=== PATIENT | female | born 1965 | race Caucasian/White ===

== ENCOUNTER 2018-05-23 02:42 | Emergency (ER) | payer BC ==
--- NOTE | 2018-05-23 03:34 | EDM.PDOC ---
ED HPI GENERAL MEDICAL PROBLEM - General Chief Complaint: General Stated Complaint: Right side chest pain; SOB Time Seen by Provider: 05/23/18 03:17 Source of Information: Reports: Patient, Family, RN, RN Notes Reviewed History Limitations: Reports: No Limitations - History of Present Illness INITIAL COMMENTS - FREE TEXT/NARRATIVE: Patient presents to the ED at [facility] for the evaluation of right side chest pain and SOB. This is not a new problem. The patient states the chest pain and SOB originally started about 6 weeks ago. Patient states this time it woke her up from sleeping. She felt clammy, sweaty, nauseated, and a hard time catching her breath. Patient stated having a multitude of other symptoms once the chest pain resolved. Patient states she is seeing Dr. Berman through [place]. All of her blood testing has been negative. Holter monitor was normal. EKG's have all been normal. Ultrasound have been normal. Patient is concerned as this chest pain with SOB has been occurring for "a long time" and does not seem to be getting better. Patient states all of her symptoms resolved prior to presentation. She is currently "feeling much better." The patient has had extensive workup to date for her current symptoms and no etiology for her chest pain/SOB has been found. Duration: Chronic Right Chest Pain Score (Numeric/FACES): 7 - Related Data Allergies Allergy/AdvReac Type Severity Reaction Status Date / Time sulfamethoxazole Allergy Hives Verified 05/23/18 02:43 [From Bactrim] trimethoprim [From Bactrim] Allergy Hives Verified 05/23/18 02:43 Past Medical History HEENT History: Reports: Allergic Rhinitis Cardiovascular History: Reports: None Respiratory History: Reports: Asthma Gastrointestinal History: Reports: GERD Genitourinary History: Reports: None Other Genitourinary History: perimenopausal vasomotor symptoms Musculoskeletal History: Reports: None Neurological History: Reports: Migraines Other Neuro History: Occational migraines Psychiatric History: Reports: Anxiety Other Psychiatric History: difficulty sleeping Hematologic History: Reports: Anemia Immunologic History: Reports: None Dermatologic History: Reports: None - Past Surgical History Head Surgeries/Procedures: Reports: None HEENT Surgical History: Reports: Tonsillectomy Other HEENT Surgeries/Procedures: teeth extraction GI Surgical History: Reports: Appendectomy Other GI Surgeries/Procedures: lap diag Female Surgical History: Reports: Section, D&C Neurological Surgical History: Reports: None Musculoskeletal Surgical History: Reports: None Social & Family History - Tobacco Use Smoking Status *Q: Never Smoker ED ROS GENERAL - Review of Systems Review Of Systems: See Below Constitutional: Reports: Weakness, Diaphoresis. Denies: Fever, Chills Respiratory: Reports: Shortness of Breath. Denies: Cough, Sputum Cardiovascular: Reports: Chest Pain, Lightheadedness. Denies: Palpitations GI/Abdominal: Reports: Nausea. Denies: Abdominal Pain, Diarrhea, Vomiting Skin: Reports: No Symptoms Neurological: Reports: Dizziness ED EXAM, GENERAL - Physical Exam Exam: See Below Exam Limited By: No Limitations General Appearance: Alert, No Apparent Distress Respiratory/Chest: No Respiratory Distress, Lungs Clear, Normal Breath Sounds Cardiovascular: Normal Peripheral Pulses, Regular Rate, Rhythm, No Edema Peripheral Pulses: 2+: Radial (L), Radial (R) GI/Abdominal: Normal Bowel Sounds, Soft, Non-Tender Neurological: Alert, Oriented Skin Exam: Warm, Dry, Intact, Normal Color EKG INTERPRETATION EKG Date: 05/23/18 Time: 02:57 Rhythm: NSR Rate (Beats/Min): 57 [place]: Normal P-Wave: Present QRS: Normal ST-T: Normal QT: Normal NH/PQ Interval: 0.17 Comparison: NA - No Prior EKG EKG Interpretation Comments: Sinus Bradycardia Borderline ECG Course - Vital Signs Last Recorded V/S: Last Vital Signs Temp 35.1 C L 05/23/18 02:44 Pulse 62 05/23/18 02:44 Resp 18 05/23/18 02:44 BP 103/64 05/23/18 02:44 Pulse Ox 100 05/23/18 02:44 - Orders/Labs/Meds Orders: Active Orders 24 hr Category Date Time Status EKG 12 Lead [EKG Documentation Completion] [RC] STAT Care 05/23/18 03:17 Active Labs: Laboratory Tests 05/23/18 05/23/18 05/23/18 Range/Units 03:33 03:33 03:39 WBC 6.9 (4.0-10.0) x10^3/uL RBC 4.60 (4.00-5.50) x10^6/uL Hgb 13.3 (12.0-16.0) g/dL Hct 40.6 (33.0-47.0) % MCV 88.3 (78.0-93.0) fL MCH 28.9 (26.0-32.0) pg MCHC 32.8 (32.0-36.0) g/dL RDW Coeff of Nilda 13.3 (10.0-15.0) % Plt Count 314 (130-400) x10^3/uL Neut % (Auto) 81.8 H (50.0-80.0) % Lymph % (Auto) 13.3 L (25.0-50.0) % Bartholomew % (Auto) 4.2 (2.0-11.0) % Eos % (Auto) 0.6 (0.0-4.0) % Baso % (Auto) 0.1 L (0.2-1.2) % Sodium 145 (136-145) mmol/L Potassium 3.7 (3.5-5.1) mmol/L Chloride 106 (98-107) mmol/L Carbon Dioxide 28 (21-32) mmol/L Anion Gap 14.7 (10-20) mmol/L BUN 24 H (7-18) mg/dL Creatinine 0.9 (0.55-1.02) mg/dL Est Cr Clr Drug Dosing TNP Estimated GFR (MDRD) > 60 Glucose 101 (74-106) mg/dL Calcium 9.5 (8.5-10.1) mg/dL Creatine Kinase 41 (26-192) U/L POC Troponin I 0.00 (0.00-0.08) ng/mL Departure - Departure Time of Disposition: 04:02 Disposition: Home, Self-Care 01 Condition: Good Clinical Impression: Atypical chest pain - Discharge Information *PRESCRIPTION DRUG MONITORING PROGRAM REVIEWED*: Not Applicable *COPY OF PRESCRIPTION DRUG MONITORING REPORT IN PATIENT CHIKA: Not Applicable Instructions: Nonspecific Chest Pain Referrals: Fernando Berman MD [Ordering Only Provider] - Forms: ED Department Discharge Additional Instructions: 1. Stay well hydrated and rest 2. All testing today was normal, which is great news 3. See your PCP as symptoms warrant - Problem List Review Problem List Initiated/Reviewed/Updated: Yes - My Orders Last 24 Hours: My Active Orders 05/23/18 03:17 EKG 12 Lead [EKG Documentation Completion] [RC] STAT - Assessment/Plan Last 24 Hours: My Active Orders 05/23/18 03:17 EKG 12 Lead [EKG Documentation Completion] [RC] STAT Assessment:: Atypical chest pain Plan: Labs and EKG discussed at length with patient. No acute emergency found. Recommend continued close follow up with PCP.
[2018-05-23 03:59] LABS: CHLORIDE,CL 106 mmol/L (98-107); SODIUM,NA 145 mmol/L (136-145)
[2018-05-23 04:01] LABS: ANION GAP 14.7 mmol/L (10-20)
== END 2018-05-23 04:08 | disposition home or self-care (01) ==
LOC: VM.ED 02:42
DX: R07.89 Other chest pain (principal); Z88.2 Allergy status to sulfonamides; Z88.1 Allergy status to other antibiotic agents
CPT/HCPCS: 36415; 80048; 82550; 84484; 85025; 93005; 99285-25

== ENCOUNTER 2022-09-07 20:39 | Emergency (ER) | payer BC ==
[2022-09-07] MEDS ORDERED: Sodium Chloride 0.9% 1,000 ML IV ONE (20:49)
[2022-09-07 21:03] LABS: BASOPHILS PERCENT AUTO 0.4 % (0.2-1.2); EOSINOPHILS ABSOLUTE AUTO 0.1 x10^3/uL (0.0-0.5); EOSINOPHILS PERCENT AUTO 1.8 % (0.0-4.0); HEMATOCRIT 38.6 % (33.0-47.0); LYMPHOCYTES ABSOLUTE AUTO 2.8 x10^3/uL (1.0-4.8); MEAN CORPUSCULAR HEMOGLOBIN 29.3 pg (26.0-32.0); MEAN CORPUSCULAR HGB CONC 33.7 g/dL (32.0-36.0); MEAN CORPUSCULAR VOLUME 87.1 fL (78.0-93.0); MONOCYTES ABSOLUTE AUTO 0.6 x10^3/uL (0.0-0.8); MONOCYTES PERCENT AUTO 7.7 % (2.0-11.0); NEUTROPHILS ABSOLUTE AUTO 3.9 x10^3/uL (1.8-7.7); NEUTROPHILS PERCENT AUTO 52.1 % (50.0-80.0); PLATELET COUNT,PLT 339 x10^3/uL (130-400); RED BLOOD CELL COUNT 4.43 x10^6/uL (4.00-5.50); WHITE BLOOD CELL COUNT,WBC 7.4 x10^3/uL (4.0-10.0)
[2022-09-07 21:23] LABS: A/G RATIO 1.19; ALANINE AMINOTRANSFERASE,ALT 26 U/L (14-59); ALBUMIN 3.8 g/dL (3.4-5.0); ALKALINE PHOSPHATASE 56 U/L (46-116); ANION GAP 13.5 mmol/L (5-15); ASPARTATE AMNIOTRANSFERASE,AST 13 U/L (15-37); BILIRUBIN TOTAL 0.4 mg/dL (0.2-1.0); BLOOD UREA NITROGEN,BUN 20 mg/dL (7-18); C-REACTIVE PROTEIN 0.29 mg/dL (<=0.30); CALCIUM 9.1 mg/dL (8.5-10.1); CARBON DIOXIDE,CO2 29 mmol/L (21-32); CHLORIDE,CL 103 mmol/L (98-107); CREATINE KINASE,CK 41 U/L (26-192); ESTIMATED GFR 67 mL/min (>=60); GLUCOSE RANDOM 91 mg/dL (70-99); LACTATE DEHYDROGENASE,LDH 128 U/L (81-234); POTASSIUM,K 3.5 mmol/L (3.5-5.1); SODIUM,NA 142 mmol/L (136-145)
== END 2022-09-07 22:31 | disposition home or self-care (01) ==
LOC: VM.ED 20:39
DX: I95.9 Hypotension, unspecified (principal); J45.909 Unspecified asthma, uncomplicated; Z98.890 Other specified postprocedural states; Z88.2 Allergy status to sulfonamides
CPT/HCPCS: 80053; 82550; 83615; 84484; 85025; 86140; 93005; 93010; 96360; 99284; 99285-25; J7030